=== PATIENT | female | born 1960 | race Caucasian/White ===

== ENCOUNTER 2020-05-14 17:48 | Emergency (ER) | payer OTHER, SELFPAY ==
[2020-05-14 17:56] VITALS: BP 160/83; PULSE 74; RESP 16; TEMP 36.6; O2SAT 100
--- NOTE | 2020-05-14 18:01 | ED.LOWEXIN ---
HPI - Extremity Injury (Lower) General Chief Complaint: Extremity Injury, Lower Stated Complaint: right foot bruised Source: patient and RN notes reviewed Mode of arrival: ambulatory Limitations: no limitations History of Present Illness HPI Narrative: This is a 60 years old female presents to the office for an evaluation for right third toe discoloration for two days. She does not recall injury/trauma/insect bite. However, she was walking barefoot two days prior to the onset of symptoms. The affected toe does not hurt unless she touches it. She tried epsom salt for her symptom. TD is up to date. Related Data Home Medications Medication Instructions Recorded Confirmed albuterol sulfate [ProAir HFA] 1 inh INHALATION QID PRN 05/14/20 05/14/20 alprazolam 0.5 mg PO DAILY 05/14/20 05/14/20 escitalopram oxalate 10 mg PO DAILY 05/14/20 05/14/20 fluticasone propionate 1 spray INTRANASAL DAILY 05/14/20 05/14/20 rizatriptan [Maxalt] mg 05/14/20 Allergies Allergy/AdvReac Type Severity Reaction Status Date / Time codeine AdvReac Severe N/V/LETHARG Verified 05/14/20 18:05 Y Review of Systems Review of Systems: Narrative: CONSTITUTIONAL: Denies fever, chills CARDIOVASCULAR: Denies chest pain, palpitation RESPIRATORY: Denies dyspnea GASTROINTESTINAL: Denies abdominal pain, nausea, vomiting SKIN: Reports dark red/black toe with a little pain. Denies itchiness. MUSCULOSKELETAL: Denies acute numbness or tingling in her foot. NEUROLOGIC: Denies lightheaded All other systems reviewed are negative, except as documented in HPI. PMFSH Past Medical History Medical History (Updated 05/14/20 @ 18:23 by NOE Elizondo) HX: breast cancer Migraine Surgical History Surgical History (Updated 05/14/20 @ 18:23 by NOE Elizondo) Hx of hysterectomy Hx of tonsillectomy Comments At time of signature, I agree with nursing past medical, surgical, social and family history. There is no relevant family history pertinent to the presenting complaint. Exam Narrative: Exam Narrative: GENERAL: This is a well-nourished, well-developed patient, in no apparent distress. CARDIOVASCULAR: Regular rate and rhythm without murmurs, gallops, or rubs. RESPIRATORY: Clear to auscultation. Breath sounds equal bilaterally. No wheezes, rales, or rhonchi. GASTROINTESTINAL: Abdomen soft, non-tender, nondistended. Bowel sounds are active. No guarding. SKIN: warm, intact with no suspicious lesions or rash, good texture and turgor. NEURO: awake, alert, and oriented to person, place and time. There were no obvious focal neurologic abnormalities. EXTREMITIES: left foot normal. Right foot normal, joint grossly intact. Right dorsal of 3rd phalange noted purpish red discoloration with underling swelling, little tenderness to palpation. PIP and DIP joints grossly intact with FROM. Skin intact; no obvious puncture/wound/insect bite joshua. Course Vital Signs Vital signs: Vital Signs Temperature 98 F 05/14/20 17:56 Pulse Rate 74 05/14/20 17:56 Respiratory Rate 16 05/14/20 17:56 Blood Pressure 160/83 H 05/14/20 17:56 Pulse Oximetry 100 05/14/20 17:56 Temperature 98 F 05/14/20 17:56 Pulse Rate 74 05/14/20 17:56 Respiratory Rate 16 05/14/20 17:56 Blood Pressure 160/83 H 05/14/20 17:56 Pulse Oximetry 100 05/14/20 17:56 MDM - Extremity Injury (Lower) MDM Narrative Medical decision making narrative: Discharge instructions reviewed with patient, as well as provided in writing per nursing staff. The instructions also include specific and strict return/GO TO THE ER as well as f/u information. All questions have been answered, and the patient deny any further questions with discharge and discharge plan. Elevated BP noted: patient is informed that they may have pre-hypertension or hypertension based on a blood pressure reading in the department. I recommend the patient call the primary care provider listed on their
== END 2020-05-14 18:22 | disposition home or self-care (01) ==
PROVIDERS: Emergency Provider Nurse Practitioner; PCP Internal Medicine
DX: L08.9 Local infection of the skin and subcutaneous tissue, unspecified (principal); Z85.3 Personal history of malignant neoplasm of breast; Z92.3 Personal history of irradiation
CPT/HCPCS: 99213; G0463

== ENCOUNTER 2020-09-26 12:21 | Outpatient (CLI) | payer OTHER, SELFPAY ==
[2020-09-26 13:14] LABS: Basophils Absolute Auto 0.02 K/mm3 (0.00-0.10); Basophils Percent Auto 0.5 % (0.0-1.0); Hematocrit 37.7 % (35.0-49.0); Immature Granulocyte Absolute 0.01 K/mm3 (0.00-0.00); Immature Granulocyte Percent A 0.3 % (0.0-0.0); Lymphocytes Absolute Auto 1.21 K/mm3 (1.10-4.50); Lymphocytes Percent Auto 30.4 % (18.0-42.0); Mean Corpuscular HGB Conc 31.8 g/dL (32.0-36.0); Mean Corpuscular Hemoglobin 28.4 pg (27.0-31.0); Mean Corpuscular Volume 89.3 fL (78.0-102.0); Mean Platelet Volume 8.9 fl (9.2-11.8); Monocytes Absolute Auto 0.31 K/mm3 (0.10-0.90); Monocytes Percent Auto 7.8 % (2.0-11.0); Neutrophils Absolute Auto 2.4 K/mm3 (1.7-7.2); Platelet Count Result 214 K/mm3 (150-420); Red Blood Count 4.22 M/mm3 (4.20-5.40); Red Cell Distribution Width 12.3 % (11.6-14.4)
[2020-09-26 13:47] LABS: SARS-CoV-2 Ag Negative (Negative)
== END 2020-09-26 12:22 | disposition home or self-care (01) ==
LOC: CHSLAB 12:25
PROVIDERS: PCP Internal Medicine; Visit Provider Internal Medicine
DX: R05 Cough (principal); Z20.828 Contact with and (suspected) exposure to other viral communicable diseases
CPT/HCPCS: 36415; 85025; 87426

== ENCOUNTER 2020-09-30 10:30 | Outpatient (CLI) | payer OTHER, SELFPAY ==
[2020-09-30 23:21] LABS: SARS-CoV-2 RNA PCR Negative
== END 2020-09-30 10:31 | disposition home or self-care (01) ==
PROVIDERS: PCP Internal Medicine; Visit Provider Internal Medicine
DX: Z20.828 Contact with and (suspected) exposure to other viral communicable diseases (principal)
CPT/HCPCS: 87635; C9803; U0003

== ENCOUNTER 2021-06-05 09:08 | Outpatient (CLI) | payer OTHER, SELFPAY ==
[2021-06-05 10:24] LABS: SARS-CoV-2 RNA PCR Negative (Negative)
== END 2021-06-05 09:09 | disposition home or self-care (01) ==
LOC: CHSLAB 09:10
PROVIDERS: PCP Internal Medicine; Visit Provider Internal Medicine
DX: Z20.822 Contact with and (suspected) exposure to COVID-19 (principal)
CPT/HCPCS: C9803; U0003; U0005

== ENCOUNTER 2021-06-08 17:39 | Outpatient (CLI) | payer OTHER, SELFPAY ==
[2021-06-08 20:04] LABS: SARS-CoV-2 RNA PCR Negative (Negative)
== END 2021-06-08 17:40 | disposition home or self-care (01) ==
LOC: CHSLAB 17:50
PROVIDERS: PCP Internal Medicine; Visit Provider Internal Medicine
DX: J06.9 Acute upper respiratory infection, unspecified (principal); Z20.822 Contact with and (suspected) exposure to COVID-19
CPT/HCPCS: C9803; U0003; U0005

== ENCOUNTER 2021-11-08 11:24 | Outpatient (CLI) | payer BC, SELFPAY ==
[2021-11-08 15:03] LABS: Influenza Control Valid (Valid)
[2021-11-08 15:28] LABS: SARS-CoV-2 Ag Negative (Negative)
[2021-11-09 21:12] LABS: SARS-CoV-2 RNA PCR Negative
== END 2021-11-08 11:25 | disposition home or self-care (01) ==
LOC: CHSLAB 11:26
PROVIDERS: PCP Internal Medicine; Visit Provider Internal Medicine
DX: J06.9 Acute upper respiratory infection, unspecified (principal); Z20.822 Contact with and (suspected) exposure to COVID-19
CPT/HCPCS: 87081; 87426; 87804; 87880; C9803; U0003; U0005

== ENCOUNTER 2022-03-09 13:13 | Outpatient (CLI) | payer BC, SELFPAY ==
[2022-03-09] MEDS: FAMOTIDINE 20 MG TABLET PO (13:35)
[2022-03-09] MEDS: diphenhydrAMINE HCl CAP 25 MG CAPSULE PO (13:35)
[2022-03-09] MEDS: ACETAMINOPHEN 325 MG TABLET 650 MG PO (13:35)
[2022-03-09] MEDS: BEBTELOVIMAB 175 MG/2 ML VIAL IV PUSH (13:50)
[2022-03-09 14:10] VITALS: BMI 24.7
[2022-03-09 14:15] VITALS: BP 128/71; PULSE 74; RESP 14; TEMP 36.8; O2SAT 99
--- NOTE | 2022-03-09 14:31 | PC.NURSE ---
Patient here for Bebtelovimab IV injection for being postive covid and meeting criteria. Education on med given. Voices on concerns. Permit signed. PO premeds and IV injection administered. SEE MAR. Tolerated well. Safe exit of hospital.
== END 2022-03-09 13:14 | disposition home or self-care (01) ==
PROVIDERS: PCP Nurse Practitioner Family; Visit Provider Nurse Practitioner Family
DX: U07.1 COVID-19 (principal)
CPT/HCPCS: M0222; Q0222

== ENCOUNTER 2023-06-19 16:23 | Outpatient (CLI) | payer BC, SELFPAY ==
--- NOTE | ~2023-06-19 | XR_ITS ---
XR chest 2V DATE: 06/19/2023 16:56 INDICATION: Dyspnea TECHNIQUE: PA and lateral views COMPARISON: 12/31/2011 PA and lateral chest FINDINGS: Moderate bilateral hyperinflation. No pulmonary infiltrate or consolidation, pleural effusi on or pulmonary vascular congestion or pneumothorax is detected. Normal heart size. No hilar or mediastinal enlargement. Osteopenia. IMPRESSION: Moderate bilateral hyperinflation; no active cardiopulmonary disease or significant abernathy e since 12/31/2011 Reviewed, dictated and finalized at location B. IMPRESSION: Moderate bilateral hyperinflation; no active cardiopulmonary diseas e or significant change since 12/31/2011
[2023-06-19 16:55] LABS: Hematocrit 36.3 % (35.0-49.0); Hemoglobin 12.1 g/dL (12.0-15.0); Mean Corpuscular HGB Conc 33.3 g/dL (32.0-36.0); Mean Corpuscular Hemoglobin 28.8 pg (27.0-31.0); Mean Corpuscular Volume 86.4 fL (78.0-102.0); Mean Platelet Volume 8.9 fl (9.2-11.8); Platelet Count Result 210 K/mm3 (150-420); Red Cell Distribution Width 12.8 % (11.6-14.4); White Blood Count 3.6 K/mm3 (4.8-10.8)
[2023-06-19 17:03] LABS: D Dimer 0.32 mg/L (0.19-0.50)
[2023-06-19 17:16] LABS: Alanine Aminotransferase 27 U/L (14-59); Albumin Level 3.7 g/dL (3.4-5.0); Alkaline Phosphatase 64 U/L (46-116); Anion Gap 5 mmol/L (8-16); Aspartate Amino Transferase 22 U/L (15-37); Bilirubin,Total 0.3 mg/dL (0.00-1.00); Blood Urea Nitrogen 16 mg/dL (7-18); Carbon Dioxide 31 mmol/L (21-32); Chloride 103 mmol/L (98-108); Creatine Kinase 196 U/L (26-192); Estimated Glomerular Filt Rate > 60; Glucose 120 mg/dL (70-99); NT Pro B Type Natriuretic Pept 90 pg/mL (0-125); Osmolality Calculated 290 mOsm/kg (285-295); Sodium 139 mmol/L (136-145); Troponin I 5.5 ng/L (0.00-60.4)
[2023-06-19 17:50] LABS: Band Neutrophils Percent 0 % (0-6); Basophils Percent Manual 0 % (0-1); Eosinophils Absolute Manual 0.03 K/mm3 (0.02-0.5); Eosinophils Percent Manual 1 % (1-6); Lymphocytes Absolute Manual 1.15 K/mm3 (1.1-4.5); Lymphocytes Percent Manual 32 % (18-44); Monocytes Absolute Manual 0.14 K/mm3 (0.1-0.90); Monocytes Percent Manual 4 % (3-9); Neutrophils Absolute Manual 2.26 K/mm3 (1.7-7.2); Neutrophils Percent Manual 63 % (46-73); Platelet Estimate Adequate (Adequate); Total Cells Counted 100
== END 2023-06-19 16:24 | disposition home or self-care (01) ==
LOC: CHSLAB 16:27
PROVIDERS: PCP Internal Medicine; Visit Provider Internal Medicine
DX: R06.00 Dyspnea, unspecified (principal); R91.8 Other nonspecific abnormal finding of lung field
CPT/HCPCS: 36415; 71046; 80053; 82550; 82553; 83880; 84484; 85025; 85380

== ENCOUNTER 2025-09-03 14:25 | Outpatient (CLI) | payer MEDICARE, SELFPAY ==
--- OUTSIDE RECORDS SUMMARY | 2024-03-25 09:02 | XMS_ITS | Encounter Summary ---
Author Organization [facility] Address [address] [place] [address] Phone Care Team Providers Care Human Resources Associate Name Role Phone Vilma Lopez MD Primary Care Provider [phone] Reason for Referral * Procedure (Routine) - Closed Specialty Diagnoses / Procedures Referred By Contac t Referred To Contact Diagnoses Frequent infections Procedures Pulmonary Function Test -[facility]- [facility]; Standard; Spirometry, Spirometry w/bronchodilator, DLCO and Lung Volumes Andria Leigh NP [address] [place] [address] [address] [place] [address] Phone: tel: fax: Referral ID Status Reason Start Date Expiration Date Visits Re quested Visits Authorized [id number] Closed 02/04/2024 03/05/2025 1 1 Reason for Visit * Procedure (Routine) - Closed Specialty Diagnoses / Procedures Referred By Contac t Referred To Contact Diagnoses Frequent infections Procedures Pulmonary Function Test -[facility]- [facility]; Standard; Spirometry, Spirometry w/bronchodilator, DLCO and Lung Volumes Andria Leigh NP [address] [place] [address] [address] [place] [address] Phone: tel: fax: Referral ID Status Reason Start Date Expiration Date Visits Re quested Visits Authorized [id number] Closed 02/04/2024 03/05/2025 1 1 Encounter Details Date Type Department Care Team (Latest Contact Info) Description 03/25/2024 10:02 AM CDT [facility] [address] [facility] [address] [place] [id number] Frequent infections Social History Tobacco Use Types Packs/Day Years Used Date Smoking Tobacco: Never Smokeless Tobacco: Never Alcohol Use Standard Drinks/Week Comments Not Currently 0 (1 standard drink = 0.6 oz pur e alcohol) Humiliation, Afraid, Rape, and Kick questionnair e Answer Date Recorded Within the last year, have y ou been afraid of your partner or ex-partner? No 04/11/2022 Within the last year, have y ou been humiliated or emotionally abused in other ways by your partner or ex-partner? No Within the last year, have y ou been kicked, hit, slapped, or otherwise physically hurt by your partner or ex-partner? No 04/11/2022 Within the last year, have y ou been raped or forced to have any kind of sexual activity by your partner or ex-partner? No 04/11/2022 PHQ-2 Answer Date Recorded PHQ-2 Total Score (If total score is 3 or more points, staff should administer the PHQ-9) 0 04/11/2022 AUDIT-C Answer Date Recorded Frequency of Alcohol Consumption Not on file 08/16/2025 Q2: How many drinks containi ng alcohol do you have on a typical day when you are drinking? 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 Never 03/17/2025 9:08 AM CDT Jenise Leggett RM A Q2: How many drinks containing alcohol do you have on a typical day when you are drinking? Patient does not drink 08/16/2025 9:14 AM CDT Jackie Iraheta CMA Q3: How often do you have six or more drinks on one occasion? Never 03/17/2025 9:08 AM CDT Jenise Leggett RM A * BP Location Answer Date of Assessment Author Left arm 08/16/2025 9:14 AM CDT Jackie Iraheta CMA documented as of this encounter Plan of Treatment Not on file documented as of this encounter Goals Goal Patient Goal Type Associated Problems Recent Progress Patient-Stated? Author BH-Pain Behavioral Health Worsening( 3:26 PM CDT) Kelsey Obando RN Note: Patient will establish a comfort-function goal and identify the pain level that will allow the patient to perform desired activities and achieve an acceptable quality of life. documented as of this encounter Procedures Procedure Name Priority Date/Time Associated Diagnosis Comments PULMONARY FUNCTION TEST (PFT) Routine 03/25/2024 2:19 PM CDT Frequent infections documented in this encounter Results * Pulmonary Function Test - (03/25/2024 2:19 PM CDT) FVC PRE 3.20 L [facility] FVC %PRE PRED 92 % [facility] FEV1 PRE 2.66 L [facility] FEV1 %PRE PRED 99 % [facility] FEV1/FVC PRE 82.9 % [facility] FRC PL PRE 2.71 L [facility] FRC PL %PRE PRED 83 % [facility] RV PRE 1.61 L [facility] RV %PRE PRED 70 % [facility] TLC PRE 4.79 L [facility] TLC %PRE PRED 84 % [facility] DLCO PRE 22.3 ml/min/mmH g [facility] DLCO %PRE PRED 104 % [facility] Anatomical Region Laterality Modality PFT 03/25/2024 10:3 1 AM CDT Impressions 03/25/2024 2:49 PM CDT There is no ventilatory defect. There is no impairment of alveolar gas exchange by DLCO. The attending pulmonary physician certifies a physician presence in the [facility] during the administration of aerosolized bronchodilator. The attending pulmonary physician certifies that he/she has reviewed and interpreted the graphic and numerical data of this pulmonary function study and agrees with the written final report. The lower limit of normal for PO2 and %HbO2 is age dependent. However, the [facility] defines hypoxemia as a PO2 <55 or a %HbO2 <89. Narrative 03/25/2024 2:49 PM CDT PFT performed at:->[facility] Adult PFT Lab- [facility] Procedure:->Standard Standard:->Spirometry, Spirometry w/bronchodilator, DLCO and Lung Volumes Pulmonary Function Test Interpretation SPIROMETRY: Spirometry is within normal limits. FLOW VOLUME LOOPS: The flow volume loop is normal LUNG VOLUMES: TLC measured by plethysmography is normal. DIFFUSING CAPACITY: The diffusing capacity is normal. us Andria Leigh GENERATING STATION MECHANIC PFT ORDERABLES Final Result documented in this encounter Visit Diagnoses Diagnosis Frequent infections documented in this encounter Care Teams Human Resources Associate Relationship Specialty Start Date End Date Vilma Lopez MD [address] [place] [address] PCP - General 12/05/17 documented as of this encounter
--- NOTE | ~2025-09-03 | XR_ITS ---
EXAMINATION: XR chest 2V, 09/03/2025 14:36 CONTRACTS REPRESENTATIVE HISTORY: COUGH/WHEEZING COMPARISON: No comparisons available. Technique: 2 views obtained. Findings: The lungs are clear, no effusion. No pneumothorax. Heart is normal size. Mediastinal and hilar contours are within normal limits. Bony thorax no acute abnormality. Impression: No acute cardiopulmonary abnormality. Reviewed, dictated and finalized at location P. RACTS REPRESENTATIVE Impression: No acute cardiopulmonary abnormality.
--- OUTSIDE RECORDS SUMMARY | 2025-09-03 18:59 | XMS_ITS | Encounter Summary ---
Author Organization [facility] Address [address] [place] [address] Care Team Providers Care Sales Representative Adding Machines Name Role Phone Vilma Lopez MD Primary Care Provider [phone] Sterling Villarreal MD Unavailable [phone] Reason for Visit * Reason Onset Date Comments Appointment Reminder Call 05/29/2022 No ans wer Encounter Details Date Type Department Care Team (Late st Contact Info) Description 05/29/2022 Telephone [facility] [address] [place] [address] Kaur Watts, RT Appointment Reminder Call (No answer) Social History Tobacco Use Types Packs/Day Years [...] by your partner or ex-partner? No 04/11/2022 AUDIT-C Answer Date Recorded Q1: How often do you have a drink containing alc ohol? 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 Author BH-Pain Behavioral Health Worsening( 3:26 PM CDT) Kelsey Obando, DAVIDE Note: Patient will establish a comfort-function goal and identify the pain level that will allow the patient to perform desired activities and achieve an acceptable quality of life. documented as of this encounter Visit Diagnoses Not on filedocumented in this encounter Care Teams Sales Representative Adding Machines Relationship Specialty Start Date End Date Vilma Lopez MD [address] [place] [address] PCP - General 12/05/17 Sterling Villarreal MD [address] [facility] [address] [place] [address] Referring Physician Ophthalmology 07/21/25 documented as of this encounter
--- OUTSIDE RECORDS SUMMARY | 2025-09-03 19:00 | XMS_ITS | Encounter Summary ---
Author Organization [facility] Address [address] [place] [address] Phone Care Team Providers Care Termite Exterminator Name Role Phone Vilma Lopez MD Primary Care Provider [phone] Sterling Villarreal MD Unavailable [phone] Encounter Details Date Type Department Care Team (Latest Contact Info) Description 02/16/2020 Orders Only [facility] Scanning, Provider Social History Tobacco Use Types Packs/Day Years Used Date Smoking Tobacco: Never Alcohol Use Standard Drinks/Week Comments Not Currently 0 (1 standard drink = 0.6 oz pur e alcohol) PHQ-2 Answer Date Recorded PHQ-2 Score 0 07/09/2019 Comments No Sex and Gender Information Value Date Recorded Sex Assigned at Not on file 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 Author BH-Pain Behavioral Health Worsening( 3:26 PM CDT) No Kelsey Oneil RN Note: Patient will establish a comfort-function goal and identify the pain level that will allow the patient to perform desired activities and achieve an acceptable quality of life. documented as of this encounter Procedures Procedure Name Priority Date/Time Associated Diagnosis Comments SCAN - LABS 02/16/2020 documented in this encounter Results * SCAN - LABS (02/16/2020) us Provider Scanning Final Result documented in this encounter Visit Diagnoses Not on filedocumented in this encounter Care Teams Termite Exterminator Relationship Specialty Start Date End Date Vilma Lopez MD [address] [place] [address] PCP - General 12/05/17 Sterling Villarreal MD [address] [facility] [address] [address] Referring Physician Ophthalmology 07/21/25 documented as of this encounter
--- OUTSIDE RECORDS SUMMARY | 2025-09-03 19:00 | XMS_ITS | Clinical Summary ---
Author Organization [facility] Address [address] [place] [address] Care Team Providers Care C T Tech Name Role Phone Vilma Lopez MD Primary Care Provider Sterling Villarreal MD Unavailable [phone] Allergies Active Allergy Reactions Criticality Noted Date Comments Codeine Nausea only Low 04/25/2010 Medications ALPRAZolam (XANAX) 0.5 mg tablet 1 8 Active fluticasone propionate (FLONASE) 50 mcg/actuation nasal spray daily. Active escitalopram (LEXAPRO) 10 mg tablet Take 20 tablets (200 mg total) by mouth daily 3 Active calcium carbonate (TUMS) 500 mg (200 mg elemental) chewable tablet Acti ve acetaminophen (TYLENOL) 500 mg tablet Active cholecalciferol (VITAMIN D-3) 2,000 unit tablet daily. 3 Active levocetirizine (XYZAL) 5 mg tablet 2 Active NON FORMULARY, FOR INPATIENT USE, ADD 1ML (SQUEEZE 0.5ML TWICE=1ML DOSE) OF MEDICATION TO 250ML OF SALINE IN SALINE IRRIGATION BOTTLE; IRRIGATE SINUSES WITH 120ML THROUGH EACH NOSTRIL TWICE DAILY 4 Active zafirlukast (ACCOLATE) 20 mg tabletIndications :Maintenance Therapy for Asthma Take 1 tablet (20 mg total) by mouth 2 (two) times a day Active ipratropium (ATROVENT) 42 mcg (0.06 %) nasal sprayIndications: Chronic rhinitis Administer 2 sprays into each nostril 3 (three) times a day as needed for rhinitis 15 mL 11 5 Active albuterol HFA (PROVENTIL HFA,VENTOLIN HFA,PROAIR HFA) 90 mcg/actuation inhalerIndication s:Moderate persistent asthma without complication Inhale 2 puffs every 6 (six) hours as needed for wheezing or shortness of breath 1 each 1 5 Active budesonide-glycop yr-formoterol (Breztri Aerosphere) 160-9-4.8 mcg/actuation inhalerIndication s:Moderate persistent asthma without complication Inhale 2 puffs 2 (two) times a day Take as directed 1 each 5 Active budesonide (Pulmicort) 0.5 mg/2 mL nebulizer solution Mix 1 vial in 20 mL of saline and instill 10 mL of saline into each nare once daily 360 mL 11 5 Active vit C/E/Zn/coppr/lute in/zeaxan ([facility]-2 ORAL) 5 Active losartan (COZAAR) 50 mg tablet 5 Active losartan-hydroCHL OROthiazide (HYZAAR) 50-12.5 mg per tablet 5 Active tiZANidine (ZANAFLEX) 2 mg tablet 5 Active azelastine (ASTELIN) 137 mcg (0.1 %) nasal sprayIndications: Allergic rhinitis due to other allergic trigger, unspecified seasonality USE 2 SPRAYS IN BOTH NOSTRILS TWICE DAILY 120 mL 3 5 Active amLODIPine (NORVASC) 10 mg tablet Take 1 tablet (10 mg total) by mouth daily 5 Active rizatriptan (MAXALT) 10 mg tablet as needed 5 Active Hospital, Clinic, or Other Facility Administered Medication Ordered Dose Route Frequency Start Date End Date Status ipratropium-albuteroL (DUO-NEB) 0.5-2.5 mg/3 mL nebulizer solution 3 mLIndications:Chronic rhinitis 3 mL nebu Once 08/16/2025 08/16/2025 Ended Active Problems Problem Noted Date Diagnosed Date Frequent infections 03/25/2024 CARRILLO (dyspnea on exertion) 03/25/2024 Well woman exam 04/11/2022 Overview (11/12/2022): Lab: Pap:all normal Follows with pcp for labs Randy:h/o cancer 11/12/22- heterogeneously dense breast Colonoscopy:cologuard negative 04/26/22 BMD:05/2022 -1.3. Will plan to repeat 04/2027 Gardasil: Assessment & Plan (04/11/2022 2:10 PM CDT): Complete exam done To cologuard and BMD rto 12m Recurrent sinus infections 08/24/2021 Hypertrophy of nasal turbinates 08/24/2021 Deviated nasal septum 08/24/2021 Insomnia 09/10/2019 Ductal carcinoma in situ (DCIS) of right breast 07/16/2019 Cervicalgia 07/09/2019 Degenerative disc disease, cervical 07/09/2019 Degenerative cervical spinal stenosis 07/09/2019 History of breast cancer 07/10/2018 Overview (06/09/2022): 04/11/22- would like genetic testing Benefits and limitations discussed Will arrange. 05/29/22- My Risk negative Assessment & Plan (06/09/2022 6:09 AM CDT): My risk is negative We discuss that this is great news and how it relates to the family. I would encourage her children to have a risk model done as, even though she has not passed along any known genes, we can not ignore the amount of breast cancer in the family. Her siblings, since her mom also had breast cancer, should do their own testing. She voices understanding and was given her My Risk binder. Assessment & Plan (04/11/2022 2:10 PM CDT): To my risk Benefits and limitations discussed rto 6 weeks for results. Atypical facial pain 03/15/2016 Allergic rhinitis due to pollen 02/09/2016 Disease of immune system 02/09/2016 Pain of foot 02/10/2014 Anemia 08/18/2013 Leukopenia 08/18/2013 Osteoarthritis of hand 06/30/2013 Anaclitic depression 02/10/2013 Migraine headache 02/10/2013 Malignant neoplasm of breast 06/10/2012 Encounters Date Type Department Care Team Description 08/31/2025 2:19 PM COMMUNITY RELATIONS DIRECTOR - 08/31/2025 11:59 PM COMMUNITY RELATIONS DIRECTOR Hospital Encounter [facility] - MRI [address] [facility] [address] [place] [address] Meningioma of cerebellum (HCC) Discharge Disposition: Discharge to home or self care 08/16/2025 10:00 AM CDT [facility] [address] [facility] [address] [place] [id number] Andria Leigh NP Chronic rhinitis (Primary Dx); Moderate persistent asthma without complication 07/22/2025 12:25 PM CDT Lab [address] [address] 07/21/2025 7:22 AM CDT - 07/21/2025 11:59 PM CDT Hospital Encounter [facility] [address] [place] [address] Nausea Discharge Disposition: Discharge to home or self care 07/20/2025 Telephone [facility] Medicine Ophthalmology [address] [place] [id number] Manoj Grant MD NEW PT 06/28/2025 12:28 PM CDT - 06/28/2025 11:59 PM CDT Hospital Encounter [facility] [address] [place] [id number] Neck pain Discharge Disposition: Discharge to home or self care 06/11/2025 10:00 AM CDT Office Visit [facility] Medicine Neurosurgery [address] [facility] Floor [address], [address] [place] [address] Ellyn Swift NP Meningioma of cerebellum (HCC) (Primary Dx) 06/08/2025 Telephone [facility] Medicine Scheduling [address] [place] [address] Valencia Faustin from Last 3 Months Immunizations Immunization Administration Dates Next Due Influenza, Quadrivalent, Split, Intramuscular Influenza, Quadrivalent, Spl it, Preservative Free, Intramuscular 07/31/2017 Influenza, Trivalent, Preservative Free, Intramu scular 07/11/2015 Influenza, Trivalent, Split, Preservative Free, Intradermal 09/18/2012 Moderna SARS-CoV-2 Monovalent Vaccination (12+ Y RS) 08/14/2021 Pfizer SARS-CoV-2 Monovalent Vaccination (12+ Yrs) PURPLE 12/30/2020,12/09/2020 Pneumococcal Conjugate PCV 13 05/30/2015 Pneumococcal Polysaccharide PPV23 02/04/2024, Tdap 02/10/2014 Surgical History Surgery Date Site/Laterality Comments HYSTERECTOMY with BSO secondary to large cyst. TAHBSO BREAST BIOPSY RT POS 2010 BREAST EXCISIONAL BIOPSY LEFT ALL NEG BREAST EXCISIONAL BIOPSY 2 NEG RT BREAST BREAST LUMPECTOMY RT 2009 Medical History Medical History Date Comments History of recurrent pneumonia P neumonia - X3 at age 49 (Added by TW Conv) Neck pain History of radiation therapy RT 2009 Anxiety Breast cancer (HCC) RT BREAST,,2 010 Family History Medical History Relation Name Comments neck cancer Brother Family history of malignant neoplasm - (Added by TW Conv) Mesothelioma Father Arthritis Maternal Grandfather Family history of arthritis - Relation: Grandfather (Added by TW Conv) Cancer Maternal Grandmother unknown -maybe female Heart disease Mother Family history of cardiac disorder - (Added by TW Conv) Postmenopausal breast cancer Mother Family history of malignant neoplasm - (Added by TW Conv) Breast cancer Paternal Grandmother Breast cancer Sister Endometrial cancer Neg Hx Ovarian cancer Neg Hx no colon canc er, no nurse obgyn cancer 04/11/22 Thyroid cancer Neg Hx Relation Name Status Comments Brother Father Maternal Grandfather Maternal Grandmother Mother Alive Other Paternal Grandmother Sister Alive Social History Tobacco Use Types Packs/Day Years Used Date Smoking Tobacco: Never Smokeless Tobacco: Never Tobacco Cessation:Counseling Given: Not Answered Alcohol Use Standard Drinks/Week Comments Not Currently [...] on file Legal Sex Female 1:03 PM COMMUNITY RELATIONS DIRECTOR Gender Identity Female 08/21/2021 7:48 PM CDT Sexual Orientation Not on file Obstetrics History Para Term AB IAB SAB Ectopic Multiple Livin g Live Births 3 1 1 Date Outcome GA Total Labor Labor/2nd/3rd Weight Sex Type Anes PTL Natalia A1 A5 Name Clin Term Last Filed Vital Signs Vital Sign Reading Time Taken Comments Blood Pressure 139/81 08/16/2025 10:11 AM CDT Pulse 77 08/16/2025 10:11 AM CDT Temperature 36.1 C (97 F) 08/16/2025 9:14 AM CDT Respiratory Rate 16 08/16/2025 10:11 AM CDT Oxygen Saturation 100% 08/16/2025 10:11 AM CDT Inhaled Oxygen Concentration - - Weight 73.9 kg (163 lb) 08/16/2025 9:14 AM CDT Height 172.7 cm (5' 8) 06/11/2025 10:08 AM CDT Body Mass Index 24.78 06/11/2025 10:08 AM CDT Plan of Treatment Health Maintenance Due Date Last Done Comments Colon Cancer Screening-Colonoscopy 1959 Fall Risk Assessment 1960 Hepatitis B Screening 1977 Zoster Vaccine (1 of 2) 2009 Depression Screening 04/11/2023 04/11/2022, 07/09/2019, 07/09/2019 Well Visit 65+ 01/23/2024 04/11/2022 DTaP/Tdap/Td Vaccine (2 - Td or Tdap) 02/11/2024 02/10/2014 Covid-19 Vaccine (4 - 2024-2 6 season) 2025 08/14/2021, 12/30/2020, 12/09/2020 Influenza Vaccine (#1) 2025 , 07/31/2017, 09/06/2016, Additional history exists Breast Cancer Screening-Mammogram 04/02/2026 04/02/2025, 01/21/2024, 11/07/2022, Additional history exists Osteoporosis Screening-Bone Density Scan 05/15/2026 05/15/2024, 05/30/2022, 06/20/2017, Additional history exists Hepatitis C Screening Completed 02/08/2016, 013 Colon Cancer Screening-DNA Stool Discontinued 04/18/20 Colon Cancer Screening-FIT Discontinued 04/18/2022 Pneumococcal vaccine 65+ Completed 024, 03/20/2016, 05/30/2015 Goals Goal Patient Goal Type Associated Problems Recent Progress Patient-Stated? Author BH-Pain Behavioral Health Worsening( 3:26 PM CDT) Kelsey Obando, DAVIDE Note: Patient will establish a comfort-function goal and identify the pain level that will allow the patient to perform desired activities and achieve an acceptable quality of life. Procedures Procedure Name Priority Date/Time Associated Diagnosis Comments MRI BRAIN W WO CONTRAST Schedule Routine, Read Routine (OP Routine) 08/31/2025 3:58 PM COMMUNITY RELATIONS DIRECTOR Meningioma of cerebellum (HCC) EGFR Routine 07/22/2025 1:02 PM CDT DIFFERENTIAL AUTO Routine 07/22/2025 1:0 2 PM CDT URINALYSIS AND REFLEX TO MICROSCOPIC Routine 07/22/2025 1:02 PM CDT LITTLE QUALITATIVE WITH REFLEX TO LITTLE QUANTITATIVE Routine 07/22/2025 1:02 PM CDT CYCLIC CITRUL PEPTIDE ANTIBODY, IGG Routine 07/22/2025 1:02 PM CDT RHEUMATOID FACTOR Routine 07/22/2025 1:0 2 PM CDT CRP (ACUTE PHASE) Routine 07/22/2025 1:0 2 PM CDT LIPASE Routine 07/22/2025 1:02 PM CDT T3, FREE Routine 07/22/2025 1:02 PM CDT AMYLASE Routine 07/22/2025 1:02 PM CDT ERYTHROCYTE SEDIMENTATION RATE Routine 07/22/2025 1:02 PM CDT CBC WITH AUTO DIFFERENTIAL Routine 07/22/2025 1:02 PM CDT TSH Routine 07/22/2025 1:02 PM CDT T4, FREE Routine 07/22/2025 1:02 PM CDT COMPREHENSIVE METABOLIC PANEL Routine 07/22/2025 1:02 PM CDT US GALLBLADDER Schedule Routine, Read Routine (OP Routine) 07/21/2025 7:55 AM CDT Nausea MRI CERVICAL SPINE WO CONTRAST Schedule Routine, Read Routine (OP Routine) 06/28/2025 1:36 PM CDT Neck pain SCREENING MAMMOGRAM BILATERAL W BUSTER Schedule Routine, Read Routine (OP Routine) 04/02/2025 11:12 AM CDT Screening mammogram, encounter for DEXA AXIAL SKELETON BONE DENSITY 1 OR MORE SITES Schedule Routine, Read Routine (OP Routine) 05/15/2024 10:23 AM CDT Age-related osteoporosis without current pathological fracture STOOL DNA COLOGUARD Routine 04/18/2022 11:46 AM CDT Screening for colon cancer SERUM HEPATITIS C AB Routine 02/08/2016 12:12 PM CDT from Last 3 Months or Most Recently Relevant to Health Maintenance Results * MRI Brain W WO Contrast (08/31/2025 3:58 PM COMMUNITY RELATIONS DIRECTOR) Anatomical Region Laterality Modality Head and Neck N/A Magnetic Resonan ce 09/01/2025 9:51 AM COMMUNITY RELATIONS DIRECTOR Impressions 09/01/2025 11:29 AM COMMUNITY RELATIONS DIRECTOR Unchanged 10 mm enhancing extra-axial inferior right posterior fossa lesion, which remains suspicious for meningioma. Dictated by: Ernesto Elizondo MD The radiology attending physician has personally reviewed this study, and had reviewed and/or edited this written report and agrees with it. Electronically signed by: Pino Barbosa M.D. Narrative 09/01/2025 11:29 AM COMMUNITY RELATIONS DIRECTOR EXAMINATION: Magnetic resonance imaging (MRI) of the brain and brainstem without and with contrast HISTORY: Right posterior fossa extra-axial lesion suspicious for meningioma TECHNIQUE: Multiplanar multi-weighted MRI of the brain and brainstem was performed without and with intravenous contrast using the brain tumor protocol. Contrast information: 14 mL Gadoterate Meglumine IV COMPARISON: Brain MRI 06/02/2025, cervical spine MRI 06/28/2025, and CT sinus 02/24/2024 FINDINGS: There is a small 0.8 x 1.0 x 0.7 cm extra-axial T1 and T2 isointense, enhancing lesion in the inferior right posterior fossa with associated elevated relative cerebral blood volume and susceptibility artifact. No significant underlying edema within the adjacent right cerebellar hemisphere. This is not significantly changed compared to prior examination accounting for differences in technique. The scalp and calvarium are normal. The superior sagittal sinus demonstrates normal venous flow. The corpus callosum is normal in shape and signal intensity. The pituitary and sella are normal. The brainstem and craniocervical junction are unremarkable. Mild periventricular and subcortical white matter T2/FLAIR hyperintensities, which are nonspecific, however most commonly reflect sequela of chronic microvascular ischemic disease. Diffusion weighted images reveal no hyperintensities to suggest acute cerebral infarction. The susceptibility weighted sequences reveal no evidence of acute or chronic hemorrhage. The ventricles are normal in size and position without evidence of hydrocephalus. The paranasal sinuses are normal. Trace right mastoid effusion. The orbits appear normal. Normal flow voids are demonstrated in the carotid arteries and basilar artery. Unchanged appearance of asymmetrically enlarged right C1 lateral mass, possible representing sequela of prior injury. Procedure Note Pino Barbosa MD - 09/01/2025 EXAMINATION: Magnetic resonance imaging (MRI) of the brain and brainstem without and with contrast HISTORY: Right posterior fossa extra-axial lesion suspicious for meningioma TECHNIQUE: Multiplanar multi-weighted MRI of the brain and brainstem was performed without and with intravenous contrast using the brain tumor protocol. Contrast information: 14 mL Gadoterate Meglumine IV COMPARISON: Brain MRI 06/02/2025, cervical spine MRI 06/28/2025, and CT sinus 02/24/2024 FINDINGS: There is a small 0.8 x 1.0 x 0.7 cm extra-axial T1 and T2 isointense, enhancing lesion in the inferior right posterior fossa with associated elevated relative cerebral blood volume and susceptibility artifact. No significant underlying edema within the adjacent right cerebellar hemisphere. This is not significantly changed compared to prior examination accounting for differences in technique. The scalp and calvarium are normal. The superior sagittal sinus demonstrates normal venous flow. The corpus callosum is normal in shape and signal intensity. The pituitary and sella are normal. The brainstem and craniocervical junction are unremarkable. Mild periventricular and subcortical white matter T2/FLAIR hyperintensities, which are nonspecific, however most commonly reflect sequela of chronic microvascular ischemic disease. Diffusion weighted images reveal no hyperintensities to suggest acute cerebral infarction. The susceptibility weighted sequences reveal no evidence of acute or chronic hemorrhage. The ventricles are normal in size and position without evidence of hydrocephalus. The paranasal sinuses are normal. Trace right mastoid effusion. The orbits appear normal. Normal flow voids are demonstrated in the carotid arteries and basilar artery. Unchanged appearance of asymmetrically enlarged right C1 lateral mass, possible representing sequela of prior injury. IMPRESSION: Unchanged 10 mm enhancing extra-axial inferior right posterior fossa lesion, which remains suspicious for meningioma. Dictated by: Ernesto Elizondo MD The radiology attending physician has personally reviewed this study, and had reviewed and/or edited this written report and agrees with it. Electronically signed by: Pino Barbosa M.D. us Ellyn Swift NP IMG MRI PROCEDURES Final R esult * LITTLE ab ql w/rflx to LITTLE qn (07/22/2025 1:02 PM CDT) LITTLE Negative Comment: Interpretive Data Normal range for LITTLE Qualitative Antibody = Negative. 1. LITTLE is performed using indirect immunofluorescence against HEp-2 cells 2. LITTLE titers are performed on all positive qualitative results. 3. A significantly positive LITTLE result is defined as a positive nuclear fluorescence at a titer of 1:80 or greater. 4. 15% of normal people above age 65 have significantly positive LITTLE results. 5% or less of normal people age 65 or under have significantly positive LITTLE results. Current interpretive data was last revised on 2020. Testing performed by: [facility], [address] [place] [address], [place]., [address] Blood 07/22/2025 1:02 PM CDT 07/22/2025 3:49 PM CDT us Vilma Lopez MD LAB BLOOD ORDERABLES Final R esult [facility] [place] [address] [facility] [place] [address] * eGFR (07/22/2025 1:02 PM CDT) eGFR >90 >=60 mL/min/1. 73 m2 Comment: Interpretive Data Reference Interval Normal >/= 90 mL/min/1.73m2 Mildly decreased* 60 - 89 mL/min/1.73m2 Mildly to moderately decreased 45 - 59 mL/min/1.73m2 Moderately to severely decreased 30 - 44 mL/min/1.73m2 Severely decreased 15 - 29 mL/min/1.73m2 Kidney Failure < 15 mL/min/1.73m2 *Relative to young adult level Estimated glomerular filtration rate is determined by the 2020 CKD-EPI equation recommended by the National Kidney Foundation (A Unifying Approach to GFR Estimation: Recommendations of the NKF-ASK Task Force on Reassessing the Inclusion of Race in Diagnosing Kidney Disease, JASN 2020). The CKD-EPI equation should not be used for patients with unstable renal function and has not been validated in children and those over 70. Current interpretive data was last reviewed 2021. Blood 07/22/2025 1:02 PM CDT 07/22/2025 1:26 PM CDT us Vilma Lopez MD LAB BLOOD ORDERABLES Final R esult [facility] ([place]) [address] [facility] [place] [address] * Differential, auto (07/22/2025 1:02 PM CDT) Neutrophil abs 3.75 1.50 - 6.50 K/cumm Imm gran abs 0.01 0.00 - 0.10 K/cumm [facility] ([place]) Lymphocyte abs 0.82 0.80 - 3.30 K/cumm [facility] ([place]) Monocyte abs 0.36 0.20 - 0.80 K/cumm [facility] ([place]) Eosinophil abs 0.03 0.00 - 0.50 K/cumm [facility] ([place]) Basophil abs 0.04 0.00 - 0.10 K/cumm [facility] ([place]) Neutrophil pct 74.8 % [facility] ([place]) Comment: Interpretive Data Percent cell count reference ranges are not reported, since discordance with absolute values may lead to misinterpretation of CBC data. Current Interpretive Data was last revised on 2018. Imm gran pct 0.2 % [facility] ([place]) Comment: Interpretive Data Percent cell count reference ranges are not reported, since discordance with absolute values may lead to misinterpretation of CBC data. Current Interpretive Data was last revised on 2018. Lymphocyte pct 16.4 % [facility] ([place]) Comment: Interpretive Data Percent cell count reference ranges are not reported, since discordance with absolute values may lead to misinterpretation of CBC data. Current Interpretive Data was last revised on 2018. Monocyte pct 7.2 % [facility] ([place]) Comment: Interpretive Data Percent cell count reference ranges are not reported, since discordance with absolute values may lead to misinterpretation of CBC data. Current Interpretive Data was last revised on 2018. Eosinophil pct 0.6 % [facility] ([place]) Comment: Interpretive Data Percent cell count reference ranges are not reported, since discordance with absolute values may lead to misinterpretation of CBC data. Current Interpretive Data was last revised on 2018. Basophil pct 0.8 % [facility] ([place]) Comment: Interpretive Data Percent cell count reference ranges are not reported, since discordance with absolute values may lead to misinterpretation of CBC data. Current Interpretive Data was last revised on 2018. Blood 07/22/2025 1:02 PM CDT 07/22/2025 1:26 PM CDT Vilma Lopez MD LAB BLOOD ORDERABLES Final R esult [facility] ([place] [address] [facility] Department of Laboratories [place], [place] [id number] * Urinalysis reflex to microscopic (07/22/2025 1:02 PM CDT) Color, ur Yellow Yellow Clarity, ur Clear Clear [facility] ([place]) Specific gravity, ur 1.015 1.003 - 1.030 [facility] ([place]) pH, urine 6.0 [facility] ([place]) Comment: Interpretive Data U rine pH is affected by diet, medications, systemic acid-base disturbances, and renal tubular function. pH may affect urinary stone formation. For example, urine pH below 6.0 may help reduce the tendency for calcium phosphate stones and pH greater than 6.0 may reduce the tendency for uric acid stone formation. Source: [facility] [employer] Current Interpretive Data was last revised on 2017 Protein, ur ql Negative Negative [facility] ([place]) Glucose, ur ql Negative Negative [facility] ([place]) Ketones, ur Negative Negative [facility] ([place]) Bilirubin, ur Negative Negative [facility] ([place]) Blood, ur Negative Negative [facility] ([place]) Urobilinogen, ur <2.0 <2.0 mg/dL [facility] ([place]) Nitrite, ur Negative Negative [facility] ([place]) Leukocyte esterase, ur Negative Negative [facility] ([place]) UA reflex comment Reflex conditions for microscopic UA not met. [facility] ([place]) Urine 07/22/2025 1:02 PM CDT 07/22/2025 1:28 PM CDT us Vilma Lopez MD LAB URINE ORDERABLES Final R esult [facility] ([place]) [address] [facility] [place] [address] * (ABNORMAL) CBC with auto differential (07/22/2025 1:02 PM CDT) WBC 5.01 3.80 - 9.90 K/cumm Hgb 12.2 11.9 - 15.5 g/dL [facility] ([place]) Hct 36.9 35.6 - 45.5 % [facility] ([place]) Plt 250 150 - 400 K/cumm [facility] ([place]) MPV 9.0(L) 9.1 - 12.3 fL [facility] ([place]) RBC 4.31 3.90 - 5.20 M/cumm [facility] ([place]) MCV 85.6 81.3 - 96.4 fL [facility] ([place]) MCH 28.3 27.1 - 33.3 pg [facility] ([place]) MCHC 33.1 32.3 - 35.7 g/dL [facility] ([place]) RDW CV 12.8 11.1 - 14.9 % [facility]) RDW SD 39.9 35.7 - 48.1 fL [facility] ([place]) NRBC abs 0.00 0.00 - 0.01 K/cumm [facility] ([place]) Blood 07/22/2025 1:02 PM CDT 07/22/2025 1:26 PM CDT Vilma Lopez MD LAB BLOOD ORDERABLES Final R esult [facility] ([place]) 1 [facility] Department [place] [employer] [place] [address] * Cyclic citrul peptide antibody, IgG (07/22/2025 1:02 PM CDT) CCP Ab <0.5 <=2.9 units/mL Comment: Interpretive data Negative: <3 units/mL Positive: > or equal to 3 units/mL Current interpretive data was last revised on 2017. Testing performed by: [facility], [address] [place] [address], [id number] Blood 07/22/2025 1:02 PM CDT 07/22/2025 3:49 PM CDT us Vilma Lopez MD LAB BLOOD ORDERABLES Final R esult Performing Organization Address City/[facility]/ZIP Co de Phone Number [facility] ([place]) 1 [facility] [place] [employer] [place] [address] * Erythrocyte sedimentation rate (07/22/2025 1:02 PM CDT) Pathologist [facility] [facility] Erythrocyte sedimentation rate 8 1 - 30 mm/hr Blood 07/22/2025 1:02 PM CDT 07/22/2025 1:26 PM CDT Vilma Lopez MD LAB BLOOD ORDERABLES Final R esult LIDIA LAUREANO ([place]) 1 [facility] [place] [address] * Rheumatoid factor (07/22/2025 1:02 PM CDT) Rheumatoid factor, quant <10 <=15 IUnits/mL Comment:Testing performed by : [facility], [address] [place] [address]., [id number] Blood 07/22/2025 1:02 PM CDT 07/22/2025 7:08 PM CDT Vilma Lopez MD LAB BLOOD ORDERABLES Final R esult LIDIA LAUREANO ([place]) 1 [facility] [place] [address] * CRP (acute phase) (07/22/2025 1:02 PM CDT) CRP <3.0 <=10.0 mg/L LIDIA Perea ([place]) Blood 07/22/2025 1:02 PM CDT 07/22/2025 1:26 PM CDT us Vilma Lopez MD LAB BLOOD ORDERABLES Final R esult Performing Organization Address [facility]/ZIP Co de Phone Number LIDIA LAUREANO ([place]) 1 [facility] [employer] [place] [id number] * T3, free (07/22/2025 1:02 PM CDT) Free T3 2.9 2.0 - 4.4 pg/mL Comment:Testing performed by : [facility], [address] [place] [address], [facility], [address] Blood 07/22/2025 1:02 PM CDT 07/22/2025 7:08 PM CDT us Vilma Lopez MD LAB BLOOD ORDERABLES Final R esult LIDIA LAUREANO ([place]) 1 [facility] [place] [address] * TSH (07/22/2025 1:02 PM CDT) Thyroid Stimulating Hormone 0.89 0.30 - 4.20 mcIUnit/mL LIDIA LAUREANO ([place]) Blood 07/22/2025 1:02 PM CDT 07/22/2025 1:26 PM CDT us Vilma Lopez MD LAB BLOOD ORDERABLES Final R esult LIDIA LAUREANO ([place]) 1 [facility] [place] [address] * T4, free (07/22/2025 1:02 PM CDT) Free T4 1.09 0.90 - 1.70 ng/dL LIDIA LAUREANO ([place]) Blood 07/22/2025 1:02 PM CDT 07/22/2025 1:26 PM CDT Result Charlee Lpoez MD LAB BLOOD ORDERABLES Final R esult Performing Organization Address City/[facility]/ZIP Co de Phone Number LIDIA LAUREANO ([place]) 1 [facility] [place] [address] * Lipase (07/22/2025 1:02 PM CDT) Lipase 25 10 - 99 Units/L LIDIA LAUREANO ([place]) Blood 07/22/2025 1:02 PM CDT 07/22/2025 1:26 PM CDT us Vilma Lopez MD LAB BLOOD ORDERABLES Final R esult LIDIA LAUREANO ([place]) 1 [facility] [place] [employer] [place] [address] * Amylase (07/22/2025 1:02 PM CDT) Amylase 59 30 - 99 Units/L [facility]IA [facility] ([place]) Blood 07/22/2025 1:02 PM CDT 07/22/2025 1:26 PM CDT us Vilma Lopez MD LAB BLOOD ORDERABLES Final R esult LIDIA [facility] ([place]) 1 [facility] [place] [address] * Comprehensive metabolic panel (07/22/2025 1:02 PM CDT) Sodium 139 135 - 145 mmol/L [facility] ([place]) Potassium, pl 4.4 3.3 - 4.9 mmol/L [facility] ([place]) Chloride 100 97 - 110 mmol/L [facility] ([place]) CO2 25 22 - 32 mmol/L [facility] ([place]) Anion gap 14 2 - 15 mmol/L [facility] ([place]) BUN 16 6 - 25 mg/dL [facility] ([place]) Creatinine 0.61 0.60 - 1.10 mg/dL [facility] ([place]) Glucose 89 70 - 199 mg/dL [facility] ([place]) Comment: Interpretive Data Fasting glucose >/= 126 mg/dl is diagnostic for diabetes. Fasting is defined as no caloric intake for at least 8 hours. Fasting glucose between 100 mg/dl to 125 mg/dl is diagnostic of prediabetes. In a patient with classic symptoms of hyperglycemia or hyperglycemic crisis, a random glucose >/= 200 mg/dl is diagnostic for diabetes. In the absence of unequivocal hyperglycemia, results should be confirmed by repeat testing. The classification and Diagnosis of Diabetes Diabetes Care 202; 46: S19-S40. Current interpretive data was last revised 2022. Calcium 9.8 8.5 - 10.3 mg/dL [facility] ([place]) Bilirubin, total 0.4 0.1 - 1.2 mg/dL [facility] ([place]) Protein, pl 6.9 6.5 - 8.5 g/dL [facility] ([place]) Albumin 4.7 3.5 - 5.0 g/dL [facility] ([place]) Alk phos 54 40 - 130 Units/L [facility] ([place]) ALT 22 7 - 45 Units/L [facility] ([place]) AST 28 10 - 45 Units/L [facility] ([place]) Blood 07/22/2025 1:02 PM CDT 07/22/2025 1:26 PM CDT us Vilma Lopez MD LAB BLOOD ORDERABLES Final R esult LIDIA LAUREANO [place]) 1 [facility] [place] [address] * US Gallbladder (07/21/2025 7:55 AM CDT) Anatomical Region Laterality Modality Abdomen N/A Ultrasound 07/22/2025 1:28 AM CDT Narrative 07/22/2025 1:28 AM CDT EXAM DESCRIPTION: US GALLBLADDER REASON FOR STUDY: Nausea TECHNIQUE: Ultrasound of the gallbladder was performed with grayscale imaging. COMPARISON: None FINDINGS: GALLBLADDER: The gallbladder appears unremarkable. No cholelithiasis. No gallbladder wall thickening or pericholecystic fluid. No positive sonographic Paradise sign reported. BILIARY SYSTEM: There is no evidence of intrahepatic or extrahepatic biliary ductal dilatation. The common bile duct measures 2 mm in diameter. LIVER: The visualized portion of the liver appears unremarkable. OTHER: The pancreas is normal in appearance. The right kidney measures 10.8 cm in longitudinal dimensions. No evidence of hydronephrosis or nephrolithiasis. IMPRESSION: Normal gallbladder sonogram. THIS IS AN ELECTRONICALLY VERIFIED FINAL REPORT 07/22/2025 1:28 AM - Electronically signed by Geovani Barnes M.D. KT: KT Report ID: [id number] Reading Location: [id number] Procedure Note Geovani Barnes MD - 07/22/2025 EXAM DESCRIPTION: US GALLBLADDER REASON FOR STUDY: Nausea TECHNIQUE: Ultrasound of the gallbladder was performed with grayscaleimaging. COMPARISON: None FINDINGS: GALLBLADDER: The gallbladder appears unremarkable. No cholelithiasis. No gallbladder wall thickening or pericholecystic fluid. No positivesonographic Paradise sign reported. BILIARY SYSTEM: There is no evidence of intrahepatic or extrahepaticbiliary ductal dilatation. The common bile duct measures 2 mm in diameter. LIVER: The visualized portion of the liver appears unremarkable. OTHER: The pancreas is normal in appearance. The right kidney cqcnvmyl57.8 cm in longitudinal dimensions. No evidence of hydronephrosis or nephrolithiasis. IMPRESSION: Normal gallbladder sonogram. THIS IS AN ELECTRONICALLY VERIFIED FINAL REPORT 07/22/2025 1:28 AM - Electronically signed by Geovani Barnes M.D. KT: KT Report ID: [id number] Reading Location: [place] [address] us Vilma Lopez MD IMG US PROCEDURES Final Resu lt * MRI Cervical Spine WO Contrast (06/28/2025 1:36 PM CDT) Anatomical Region Laterality Modality Spine N/A Magnetic Resonan ce 06/29/2025 8:02 AM CDT Narrative 06/29/2025 8:07 AM CDT EXAM DESCRIPTION: MRI CERVICAL SPINE WO CONTRAST REASON FOR STUDY: neck pain 10 years chronic neck pain that travel down both shoulders and up into her head lately more intense TECHNIQUE: Sagittal and Axial imaging includes T1, T2, STIR and gradient echo sequences. COMPARISON: Cervical spine radiographs dated 02/10/2013. FINDINGS: ALIGNMENT: Straightening of the normal cervical lordosis. Mild retrolisthesis of C5 on C6 and C6 on C7. VERTEBRAE: The C6-C7 opposing endplate edematous type T1 hypointense, T2/STIR hyperintense marrow signal alteration of the nonspecific and presumed to be degenerative in nature as there is no significant adjacent soft tissue inflammation. Please correlate laboratory data if there is concern for an infectious process. Additional endplate degenerative changes favoring C5-C6. Partial osseous fusion across the C2-C3 facet joints. Nupty-edrgmad-amyc-left C1-C2 level degenerative changes. DISCS: Multilevel disc desiccation and height loss ranging from moderate to severe at C5-C6 and C6-C7. HARDWARE: None in the spine. CORD: The cervical cord signal is within normal limits. INDIVIDUAL LEVELS: C2-C3: No significant disc bulge, spinal canal or neural foraminal narrowing. C3-C4: Minor disc bulge and thickened ligamentum flavum. No significant spinal canal stenosis. Uncovertebral spurring and bilateral facet arthropathy with kuwk-ip-kfjcntur bilateral neural foraminal narrowing. C4-C5: Posterior disc osteophyte complex and thickened ligamentum flavum. No significant spinal canal stenosis. Uncovertebral spurring and facet arthropathy with faav-eb-pzpddvrg right and mild left neural foraminal narrowing. C5-C6: Posterior disc osteophyte complex and thickened ligamentum flavum. Feup-bs-iwysyicx spinal canal stenosis. Uncovertebral spurring and facet arthropathy with severe bilateral neural foraminal narrowing. C6-C7: Posterior disc osteophyte complex and thickened ligamentum flavum. Itzh-as-edmnalmp spinal canal stenosis. Uncovertebral spurring and facet arthropathy with severe neural foraminal narrowing. C7-T1: No significant disc bulge, spinal canal or neural foraminal narrowing. There is bilateral facet arthropathy. UPPER THORACIC: Incompletely imaged. Degenerative changes without high-grade spinal canal stenosis. IMPRESSION: 1. Cervical disc degeneration ranging up to moderate to severe with thickened ligamentum flavum, uncovertebral spurring and facet arthropathy as described. The spinal canal narrowing is most noticeable at C5-C6 and C6-C7. 2. Varying degrees of bilateral neural foraminal stenosis ranging up to severe and other findings as above. 3. Recent imaging studies are not available for comparison. THIS IS AN ELECTRONICALLY VERIFIED FINAL REPORT 06/29/2025 8:07 AM - Electronically signed by Mehdi Mitchell D.O. AP: AP Report ID: [id number] Reading Location: [place] [address] Procedure Note Mehdi Mitchell, DO - 06/29/2025 EXAM DESCRIPTION: MRI CERVICAL SPINE WO CONTRAST REASON FOR STUDY: neck pain 10 years chronic neck pain that travel down both shoulders and up into her head lately more intense TECHNIQUE: Sagittal and Axial imaging includes T1, T2, STIR and gradientecho sequences. COMPARISON: Cervical spine radiographs dated 02/10/2013. FINDINGS: ALIGNMENT: Straightening of the normal cervical lordosis. Mild retrolisthesis of C5 on C6 and C6 on C7. VERTEBRAE: The C6-C7 opposing endplate edematous type T1 hypointense, T2/STIR hyperintense marrow signal alteration of the nonspecific andpresumed to be degenerative in nature as there is no significant adjacent softtissue inflammation. Please correlate laboratory data if there is concern for an infectious process. Additional endplate degenerative changes favoringC5-C6. Partial osseous fusion across the C2-C3 facet joints.Dbypf-tduinmg-dosj-left C1-C2 level degenerative changes. DISCS: Multilevel disc desiccation and height loss ranging from moderateto severe at C5-C6 and C6-C7. HARDWARE: None in the spine. CORD: The cervical cord signal is within normal limits. INDIVIDUAL LEVELS: C2-C3: No significant disc bulge, spinal canal or neural foraminalnarrowing. C3-C4: Minor disc bulge and thickened ligamentum flavum. No significant spinal canal stenosis. Uncovertebral spurring and bilateral facetarthropathy with tmnu-xy-wgqxbehn bilateral neural foraminal narrowing. C4-C5: Posterior disc osteophyte complex and thickened ligamentum flavum.No significant spinal canal stenosis. Uncovertebral spurring and facet arthropathy with qzaq-dp-fslzlbcx right and mild left neural foraminal narrowing. C5-C6: Posterior disc osteophyte complex and thickened ligamentum flavum. Xoia-bk-svtnxkau spinal canal stenosis. Uncovertebral spurring and facet arthropathy with severe bilateral neural foraminal narrowing. C6-C7: Posterior disc osteophyte complex and thickened ligamentum flavum. Mzjr-kk-wzelotxg spinal canal stenosis. Uncovertebral spurring and facet arthropathy with severe neural foraminal narrowing. C7-T1: No significant disc bulge, spinal canal or neural foraminalnarrowing. There is bilateral facet arthropathy. UPPER THORACIC: Incompletely imaged. Degenerative changes without high-grade spinal canal stenosis. IMPRESSION: 1. Cervical disc degeneration ranging up to moderate to severe with thickened ligamentum flavum, uncovertebral spurring and facet arthropathyas described. The spinal canal narrowing is most noticeable at C5-C6 andC6-C7. 2. Varying degrees of bilateral neural foraminal stenosis ranging up to severe and other findings as above. 3. Recent imaging studies are not available for comparison. THIS IS AN ELECTRONICALLY VERIFIED FINAL REPORT 06/29/2025 8:07 AM - Electronically signed by Medhi Mitchell D.O. AP: CAMILA Report ID: [id number] Reading Location: [id number] Vilma Lopez MD IMG MRI PROCEDURES Final Res ult * Screening Mammogram Bilateral W Buster (04/02/2025 11:12 AM CDT) Anatomical Region Laterality Modality Breast Bilateral Mammography Impressions 04/04/2025 2:39 PM CDT There is no mammographic evidence to suggest new or recurrent malignancy. The patient may continue screening mammography as per ACR guidelines. FINAL ASSESSMENT: BI-RADS Category 2: Benign. Narrative 04/04/2025 2:39 PM CDT EXAMINATION: BILATERAL SCREENING MAMMOGRAM WITH TOMOGRAPHY HISTORY: Screening. Right lumpectomy/partial mastectomy COMPARISON(S): 2023, 2022, and 2021 TECHNIQUE: Full-field 2D images and digital tomosynthesis images were obtained. CAD was utilized. BREAST PARENCHYMAL COMPOSITION: The breasts are heterogenously dense, which may obscure small masses. FINDINGS: There are no suspicious masses. No suspicious calcifications are seen. There is postsurgical change on the right in the lumpectomy/partial mastectomy bed, unchanged. There is no unexplained architectural distortion. There is no skin thickening seen. There are no mammographically abnormal lymph nodes seen in the axillae or elsewhere. 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 LEFT HIP: Total BMD is 0.911 g/cm2 T-score is -0.3 This is decreased in comparison to prior exam which is not statistically significant. Femoral neck BMD is 0.723 g/cm2 T-score is -1.1 FRAX: 10 year risk for a major osteoporotic fracture is 16 %, 10 year risk for a hip fracture is 0.7 % IMPRESSION: Low Bone Mass. REFERENCE: Bone mineral density: T-Score: Normal (T-score above or = -1.0) Low bone mass (T-score between -1.0 and -2.5) replaces the previously used term osteopenia Osteoporosis (T-score = or below -2.5) Z-Score: Within the expected range for age (Z-score above -2.0) Below the expected range for age (Z-score is -2.0 or below) Please see below follow up recommendations. Medical evaluation for secondary causes of low bone mineral density may be appropriate. FRAX is a World Health Organization validated fracture risk assessment tool that calculates a person's 10 year probability of a major osteoporosis related fracture and hip fracture. According to the National Osteoporosis Foundation guidelines, postmenopausal women and men age 50 or older with low bone mass and a 10 year probability of a major osteoporosis related fracture = or greater than 20% or a 10 year probability of a hip fracture = or greater than 3% should be considered for pharmacological treatment for the prevention of osteoporosis. For further information, including treatment recommendations, please refer to the 2019 ISCD Official Positions (http://www.iscd.org) and the NOF's Clinician's Guide to Prevention and Treatment of Osteoporosis (http://www.nof.org/professionals/clinical-guidelines) THIS IS AN ELECTRONICALLY VERIFIED FINAL REPORT 05/15/2024 5:24 PM - Electronically signed by Ed Nunez M.D. 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 LEFT HIP: Total BMD is 0.911 g/cm2 T-score is -0.3 This is decreased in comparison to prior exam which is not statistically significant. Femoral neck BMD is 0.723 g/cm2 T-score is -1.1 FRAX: 10 year risk for a major osteoporotic fracture is 16 %, 10 year risk for ahip fracture is 0.7 % IMPRESSION: Low Bone Mass. REFERENCE: Bone mineral density: T-Score: Normal (T-score above or = -1.0) Low bone mass (T-score between -1.0 and -2.5) replaces thepreviously used term osteopenia Osteoporosis (T-score = or below -2.5) Z-Score: Within the expected range for age (Z-score above -2.0) Below the expected range for age (Z-score is -2.0 or below) Please see below follow up recommendations. Medical evaluation forsecondary causes of low bone mineral density may be appropriate. FRAX is a World Health Organization validated fracture risk assessmenttool that calculates a person's 10 year probability of a major osteoporosisrelated fracture and hip fracture. According to the National OsteoporosisFoundation guidelines, postmenopausal women and men age 50 or older with low bonemass and a 10 year probability of a major osteoporosis related fracture = or greater than 20% or a 10 year probability of a hip fracture = or greaterthan 3% should be considered for pharmacological treatment for the preventionof osteoporosis. For further information, including treatment recommendations, please referto the 2019 ISCD Official Positions (http://www.iscd.org) and the NOF's Clinician's Guide to Prevention and Treatment of Osteoporosis (http://www.nof.org/professionals/clinical-guidelines) THIS IS AN ELECTRONICALLY VERIFIED FINAL REPORT 05/15/2024 5:24 PM - Electronically signed by Ed Nunez M.D. MF: NGUYEN Report ID: [id number] Reading Location: [place] [address] Vilma Lopez MD IMG DXA PROCEDURES Final Res ult * Stool DNA - Cologuard (04/18/2022 11:46 AM CDT) Stool DNA - Cologuard Negative Negative [facility] (CLIA #:[id number]) Comment: NEGATIVE TEST RESULT. A negative Cologuard result indicates a low likelihood that a colorectal cancer (CRC) or advanced adenoma (adenomatous polyps with more advanced pre-malignant features) is present. The chance that a person with a negative Cologuard test has a colorectal cancer is less than 1 in 1500 (negative predictive value >99.9%) or has an advanced adenoma is less than 5.3% (negative predictive value 94.7%). These data are based on a prospective cross-sectional study of 10,000 individuals at average risk for colorectal cancer who were screened with both Cologuard and colonoscopy. (Kirk Anthony et al, N Engl J Med 2014;370(14):6583-7531) The normal value (reference range) for this assay is negative. COLOGUARD RE-SCREENING RECOMMENDATION: Periodic colorectal cancer screening is an important part of preventive healthcare for asymptomatic individuals at average risk for colorectal cancer. Following a negative Cologuard result, the [place] [employer] and U.S. Multi-Society Task Force screening guidelines recommend a Cologuard re-screening interval of 3 years. References: [place] [employer] Guideline for Colorectal Cancer Screening: https://www.cancer.org/cancer/aevwi-awnezr-vpvwff/krqirnxvx-yutiwpdmr-oakaspm/ac s-rec ommendations.html.; Cain MENDEZ, Judi CR, Abbi BARAJAS, Colorectal Cancer Screening: Recommendations for Physicians and Patients from the U.S. Multi-Society Task Force on Colorectal Cancer Screening , Am J Gastroenterology 2017; 112:2056-7576. TEST DESCRIPTION: Composite algorithmic analysis of stool DNA-biomarkers with hemoglobin immunoassay. Quantitative values of individual biomarkers are not reportable and are not associated with individual biomarker result reference ranges. Cologuard is intended for colorectal cancer screening of adults of either sex, 45 years or older, who are at average-risk for colorectal cancer (CRC). Cologuard has been approved for use by the U.S. FDA. The performance of Cologuard was established in a cross sectional study of average-risk adults aged 50-84. Cologuard performance in patients ages 45 to 49 years was estimated by sub-group analysis of near-age groups. Colonoscopies performed for a positive result may find as the most clinically significant lesion: colorectal cancer [4.0%], advanced adenoma (including sessile serrated polyps greater than or equal to 1cm diameter) [20%] or non- advanced adenoma [31%]; or no colorectal neoplasia [45%]. These estimates are derived from a prospective cross-sectional screening study of 10,000 individuals at average risk for colorectal cancer who were screened with both Cologuard and colonoscopy. (Kirk Ludwig al, N Engl J Med 2014;370(14):0986-6650.) Cologuard may produce a false negative or false positive result (no colorectal cancer or precancerous polyp present at colonoscopy follow up). A negative Cologuard test result does not guarantee the absence of CRC or advanced adenoma (pre-cancer). The current Cologuard screening interval is every 3 years. ([place] [employer] and U.S. Multi-Society Task Force). Cologuard performance data in a 10,000 patient pivotal study using colonoscopy as the reference method can be accessed at the following location: www.KIT digital.com/results. Additional description of the Cologuard test process, warnings and precautions can be found at www.CrossFiberrd.com. Stool 04/18/2022 11:4 6 AM CDT 04/19/2022 2:00 PM CDT Rina Huitron MD LAB BODY FLUIDS AND STOOLS ORDERABLES Final Result [facility] (CLIA #:[id number]) [place] [address] * Serum Hepatitis C ab (02/08/2016 12:12 PM CDT) HCV ab Negative NEG HISTORICAL RESULTS Comment: Interpretive Data If confirmation is required, call Laboratory Customer Service to request sample to be sent to [facility] for Hepatitis C Virus (HCV) RNA Detection and Quantitation by Real-Time Reverse Heavy Equipment Diesel Mechanic-PCR (RT-PCR). Current interpretive data was last revised on 2012 Serum 02/08/2016 12:1 2 PM CDT Narrative HISTORICAL RESULTS - 02/09/2016 6:09 AM CDT Test performed at [facility], [address] [facility],, [place], [place], [facility], [address]. [facility] Spenser Dacosta MD LAB BLOOD ORDERABLES Final Res ult Performing Organization Address City/State/[facility] Co de Phone Number HISTORICAL RESULTS from Last 3 Months or Most Recently Relevant to [place] [address] [facility] BLUE ACC CHOICE OOS MEDICARE AETNA SENIOR SUPPLEMENT MEDICARE AETNA SENIOR SUPPLEMENT [place] [id number] Care Teams C T Tech Relationship Specialty Start Date End Date Vilma Lopez MD [address] [place] [address] PCP - General 12/05/17 Sterling Villarreal MD [address] [facility] [address] [address] Referring Physician Ophthalmology 07/21/25
--- OUTSIDE RECORDS SUMMARY | 2025-09-03 19:00 | XMS_ITS | Encounter Summary ---
Author Organization [facility] Address [address] [place] [address] Phone Care Team Providers Care Etcher Hand Name Role Phone Vilma Lopez MD Primary Care Provider [phone] Sterling Villarreal MD Unavailable [phone] Encounter Details Date Type Department Care Team (Latest Contact Info) Description 11/08/2021 Orders Only [facility] Scanning, Provider Social History Tobacco Use Types Packs/Day Years Used Date Smoking Tobacco: Never Alcohol Use Standard Drinks/Week Comments Not Currently 0 (1 standard drink = 0.6 oz pur e alcohol) AUDIT-C Answer Date Recorded Q1: How often do you have a drink containing alc ohol? Never 08/23/2021 Q2: How many drinks containi ng alcohol do you have on a typical day when you are drinking? 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 Author BH-Pain Behavioral Health Worsening( 3:26 PM CDT) No Tavolacci, Kelsey Nasreen, RN Note: Patient will establish a comfort-function goal and identify the pain level that will allow the patient to perform desired activities and achieve an acceptable quality of life. documented as of this encounter Procedures Procedure Name Priority Date/Time Associated Diagnosis Comments SCAN - LABS 11/08/2021 documented in this encounter Results * SCAN - LABS (11/08/2021) us Provider Scanning Final Result documented in this encounter Visit Diagnoses Not on filedocumented in this encounter Care Teams Etcher Hand Relationship Specialty Start Date End Date Vilma Lopez MD [address] [place] [address] PCP - General 12/05/17 Sterling Villarreal MD [address] [place] [address] [place] [id number] Referring Physician Ophthalmology 07/21/25 documented as of this encounter
--- OUTSIDE RECORDS SUMMARY | 2025-09-03 19:00 | XMS_ITS ---
Author Organization [facility] Address [address] [place] [address] Care Team Providers Care Clearance Rep Name Role Phone Vilma Lopez MD Primary Care Provider [phone] Sterling Villarreal MD Unavailable [phone] Active Problems Problem Noted Date Diagnosed Date [...] headache 02/10/2013 Malignant neoplasm of breast 06/10/2012 Current Treatment and Therapy Plans No current plan information found. Past Treatment and Therapy Plans No past plan information found. Lifetime Dose Tracking * Chemical Lifetime Dose Automatic Entry Manual Entr y Fluoro Time 0.233 minutes 0.233 minutes 0 minutes Air kerma at the reference point (Ka,r) 1.78 mGy 1 .78 mGy 0 mGy DLP 123 mGycm 123 mGycm 0 mGycm
== END 2025-09-03 14:26 | disposition home or self-care (01) ==
PROVIDERS: PCP Internal Medicine; Visit Provider Internal Medicine
DX: R05.9 Cough, unspecified (principal); R06.2 Wheezing
CPT/HCPCS: 71046